=== PATIENT | male | born 1990 | race Caucasian/White ===

== ENCOUNTER 2025-04-16 14:32 | Emergency (ER) | payer BC ==
[2025-04-16] MEDS ORDERED: Sodium Chloride 0.9% 10 ML Syringe FLUSH PRN (14:35)
[2025-04-16 14:44] LABS: BASOPHILS ABSOLUTE AUTO 0.06 K/uL (0.00-0.20); BASOPHILS PERCENT AUTO 0.6 % (0.0-2.0); EOSINOPHILS ABSOLUTE AUTO 0.13 K/uL (0.00-0.50); EOSINOPHILS PERCENT AUTO 1.2 % (0.0-5.0); IMMATURE GRAN ABSOLUTE AUTO 0.02 10^3/uL (0.00-0.04); IMMATURE GRAN PERCENT AUTO 0.2 % (0.0-0.4); LYMPHOCYTES ABSOLUTE AUTO 2.54 K/uL (0.50-3.50); LYMPHOCYTES PERCENT AUTO 23.6 % (10.0-50.0); MONOCYTES ABSOLUTE AUTO 0.84 K/uL (0.00-1.00); MONOCYTES PERCENT AUTO 7.8 % (2.0-14.0); NEUTROPHILS ABSOLUTE AUTO 7.19 K/uL (1.40-7.00); NEUTROPHILS PERCENT AUTO 66.6 % (45.0-80.0); PLATELET COUNT,PLT 303 K/uL (150-350); RED BLOOD CELL COUNT 4.96 M/uL (4.33-5.41); RED CELL DISTRIBUTION WIDTH 12.3 % (11.2-14.1); WHITE BLOOD CELL COUNT,WBC 10.8 K/uL (4.0-10.2)
[2025-04-16 15:08] LABS: ALANINE AMINOTRANSFERASE,ALT 40 U/L (12-78); ASPARTATE AMNIOTRANSFERASE,AST 17 U/L (15-37); BILIRUBIN TOTAL 0.7 mg/dL (0.2-1.0); BLOOD UREA NITROGEN,BUN 14 mg/dL (7-18); CARBON DIOXIDE,CO2 28.1 mmol/L (21.0-32.0); CHLORIDE,CL 106 mmol/L (98-107); CREATININE 1.11 mg/dL (0.51-1.17); EST CRCL DRUG DOSING (CG) 91.58 mL/min; GLUCOSE RANDOM 84 mg/dL (70-99); POTASSIUM,K 4.2 mmol/L (3.5-5.1); PROTEIN TOTAL,TP 7.8 g/dL (6.4-8.2); SODIUM,NA 142 mmol/L (136-145)
[2025-04-16 15:11] LABS: INR 1.0 (0.9-1.1); PTT,PARTIAL THROMBOPLSTIN TIME 27.6 SEC (23.8-34.4)
[2025-04-16 15:14] LABS: ESTIMATED GFR 90 mL/min (>=60)
[2025-04-16 15:17] VITALS: PULSE 90
[2025-04-16 16:05] VITALS: BP 137/83
== END 2025-04-16 16:35 | disposition home or self-care (01) ==
LOC: LL.ED 14:32
DX: R07.89 Other chest pain (principal); Z79.899 Other long term (current) drug therapy
CPT/HCPCS: 36415; 71045; 80053; 83735; 84484; 85025; 85379; 85610; 85730; 86140; 93010; 99284; 99285